=== PATIENT | female | born 1965 | race Caucasian/White ===

== ENCOUNTER 2018-05-28 07:26 | Emergency (ER) | payer BC ==
[~2018-05-28] VITALS: Ht 170.2 cm; Wt 94.8 kg
[~2018-05-28 07:26] MED LIST: CLARITIN10 MG PO; FLONASE 0.05%50 MCG NASAL; KEFLEX500 MG PO; PROBIOTIC1 EAC2 PO; SUPER B WITH V1 EAC1 PO; TRIAMCINOLONE A80 G2 TOP; VITAMIN B-12500 MCG PO; VITAMIN D2000 UNIT PO; VITAMIN E400 UNIT PO
[2018-05-28] MEDS ORDERED: ZYRTEC10 M2 PO (07:38)
[2018-05-28] MEDS ORDERED: LEVSIN0.125 MG PO (07:39)
[2018-05-28 08:22] LABS: CREATININE 0.9 mg/dL (0.6-1.3); POTASSIUM 4.2 mmol/L (3.5-5.1)
[2018-05-28 08:54] LABS: URINE BILIRUBIN NEGATIVE (Negative); URINE BLOOD 1+ (Negative); URINE CLARITY CLEAR; URINE COLOR YELLOW; URINE GLUCOSE-RANDOM NEGATIVE (Negative); URINE KETONES NEGATIVE (Negative); URINE LEUKOCYTES-REFLEX TRACE (Negative); URINE PROTEIN TRACE (Negative); URINE SPECIFIC GRAVITY >= 1.030 (1.005-1.030); URINE UROBILINOGEN 0.2 E.U./dl (0.2-1.0)
[2018-05-28 08:58] LABS: URINE NITRITE-REFLEX POSITIVE (Negative)
[2018-05-28 09:04] LABS: BACTERIA-REFLEX 1-9 Few /HPF (None Seen); CASTS None Seen /LPF (None Seen); CRYSTALS None Seen /LPF (None Seen); MUCUS 0-3 Light strn/LPF (None Seen); SQUAMOUS 4-10 Moderate /LPF (0-3); TRANSITIONAL EPITHEL CELL 0-3 Few /LPF (None Seen)
[2018-05-28] MEDS ORDERED: BACTRIM DS TAB1 EACH PO (09:39)
[2018-05-28] MEDS ORDERED: PHENAZOPYRIDIN200 M2 PO (09:39)
[2018-05-28] MEDS ORDERED: NORCO 5-325 TA1 EACH PO (09:39)
[2018-05-28 09:49] VITALS: BP 149/87
== END 2018-05-28 09:50 | disposition home or self-care (01) ==
LOC: M.ERS 07:26
PROVIDERS: Emergency Medicine Emergency Medical Services
DX: N12 Tubulo-interstitial nephritis, not specified as acute or chronic (principal); M79.7 Fibromyalgia; K58.9 Irritable bowel syndrome, unspecified; F17.210 Nicotine dependence, cigarettes, uncomplicated; Z98.890 Other specified postprocedural states